=== PATIENT | male | born 1985 | race Caucasian/White ===

== ENCOUNTER 2023-09-15 02:42 | Emergency (ER) | payer OTHER ==
[~2023-09-15] VITALS: Ht 175.3 cm; Wt 110.0 kg
[2023-09-15 02:52] VITALS: BP 110/70; PULSE 88; RESP 18; TEMP 98
[2023-09-15 03:50] LABS: BASOPHILS % (AUTO) 0.5 % (0.0-2.0); EOSINOPHILS % (AUTO) 0.6 % (1.0-6.0); HEMATOCRIT 43.6 % (41-53); HEMOGLOBIN 14.6 g/dL (13.5-17.5); LYMPHOCYTES # (AUTO) 3.5 K/uL (1.0-4.8); LYMPHOCYTES % (AUTO) 43.9 % (22.0-44.0); MEAN CORPUSCULAR HEMOGLOBIN 30.1 pg (26.0-34.0); MEAN CORPUSCULAR HGB CONC 33.5 G/dL (31.0-37.0); MEAN CORPUSCULAR VOLUME 90 fL (80-100); MONOCYTES # (AUTO) 0.5 K/uL (0.1-1.0); MONOCYTES % (AUTO) 6.7 % (2.0-9.0); NEUTROPHILS # (AUTO) 3.8 K/uL (1.8-7.7); NEUTROPHILS % (AUTO) 48.3 % (40.0-70.0); PLATELET COUNT (AUTO) 246 K/uL (150-450); RED BLOOD CELL COUNT(AUTO) 4.85 MIL/uL (4.50-5.90); RED CELL DISTRIBUTION WIDTH 13.5 % (11.5-14.5); WHITE BLOOD COUNT (AUTO) 7.9 K/uL (4.5-11.0)
[2023-09-15 03:53] LABS: ANION GAP 9 mmol/L (8-16); CALCIUM, TOTAL 9.4 mg/dL (8.8-10.5); CARBON DIOXIDE 29 mmol/L (22-29); CHLORIDE 102 mmol/L (98-107); CREATININE 0.64 mg/dL (0.60-1.30); GLOMERULAR FILTR. RATE CALC > 60 mL/min (>60); GLUCOSE,RANDOM 103 mg/dL (70-110); SODIUM SERUM 140 mmol/L (136-145); UREA NITROGEN, BLOOD 12 mg/dL (7-18)
[2023-09-15 03:59] LABS: ALANINE AMINOTRANSFERASE 47 U/L (12-78); ALBUMIN 3.9 g/dL (3.4-5.0); ALKALINE PHOSPHATASE 70 U/L (46-116); ASPARTATE AMINOTRANSFERASE 35 U/L (15-37); BILIRUBIN,TOTAL 0.2 mg/dL (0.1-1.0); TOTAL PROTEIN, SERUM 7.1 g/dL (6.4-8.2)
[2023-09-15 04:08] LABS: ALCOHOL, BLOOD (SERUM) 216 mg/dL (0-10)
== END 2023-09-15 05:42 | disposition home or self-care (01) ==
LOC: EMS 02:43
DX: F10.229 Alcohol dependence with intoxication, unspecified (principal); F12.90 Cannabis use, unspecified, uncomplicated; F15.90 Other stimulant use, unspecified, uncomplicated; Y90.9 Presence of alcohol in blood, level not specified
CPT/HCPCS: 99283; 80053; 85025; 36415; G0480

== ENCOUNTER 2025-03-21 13:39 | Inpatient (IN) | payer MEDICAID, OTHER ==
[~2025-03-21] VITALS: Ht 172.7 cm; Wt 97.8 kg
[~2025-03-21 13:39] MED LIST: RISP-31 PO; SERT-158 PO; SERT-439 PO
[2025-03-21 14:14] LABS: COVID AG,FIA SOURCE NASAL SWAB
[2025-03-21 14:26] LABS: PLATELET COUNT (AUTO) 239 K/uL (150-450); RED BLOOD CELL COUNT(AUTO) 4.80 MIL/uL (4.50-5.90); RED CELL DISTRIBUTION WIDTH 14.3 % (11.5-14.5); WHITE BLOOD COUNT (AUTO) 8.3 K/uL (4.5-11.0)
[2025-03-21 14:32] LABS: SARS-COV2 (COVID) ANTIGEN,FIA Negative (Negative)
[2025-03-21 14:34] LABS: CALCIUM, TOTAL 8.6 mg/dL (8.8-10.5); CREATININE 0.84 mg/dL (0.60-1.30); GLOMERULAR FILTR. RATE CALC > 60 mL/min (>60); GLUCOSE,RANDOM 99 mg/dL (70-110); SODIUM SERUM 137 mmol/L (136-145); UREA NITROGEN, BLOOD 9 mg/dL (7-18)
[2025-03-21 14:57] LABS: APPEARANCE,URINE CLEAR (CLEAR); GLUCOSE, URINE (UA) NEGATIVE (NEGATIVE); LEUKOCYTE ESTERASE ,URINE NEGATIVE (NEGATIVE); NITRATE,URINE NEGATIVE (NEGATIVE); OCCULT BLOOD,URINE SMALL (NEGATIVE); PH,URINE DRUG SCREEN 6.5 (5.0-8.0); SPECIFIC GRAVITIY, URINE 1.020 (1.003-1.030)
[2025-03-21 15:02] LABS: ALCOHOL, URINE DRUG SCREEN POSITIVE (NEGATIVE); AMPHET/METH SCREEN,URINE NEGATIVE (NEGATIVE); BARBITURATE SCREEN, URINE NEGATIVE (NEGATIVE); CANNABINOID SCREEN,URINE NEGATIVE (NEGATIVE); COCAINE SCREEN,URINE NEGATIVE (NEGATIVE); METHADONE SCREEN, URINE NEGATIVE (NEGATIVE)
[2025-03-21 15:35] LABS: SQUAMOUS EPITHELIAL CELL,UR Few /LPF (None Seen)
[2025-03-21 21:07] VITALS: O2SAT 99
[2025-03-21 23:00] VITALS: BP 132/90; PULSE 96; RESP 18; TEMP 98.6; O2SAT 97
[2025-03-21 23:59] VITALS: BP 154/79; PULSE 92; RESP 16; TEMP 97.3; O2SAT 97
[2025-03-22] VITALS (11 sets, daily range): BP systolic 106–142; BP diastolic 76–98; PULSE 79–128; RESP 16–18; TEMP 97.3–98.4; O2SAT 95–100
[2025-03-22 08:56] LABS: CHOL/HDL RATIO 3.2 (4.2-7.3); LDL CHOL (CALC.) 154.0 mg/dL (0-130)
[2025-03-22] MEDS ORDERED: PETROLATUM,WHITE 28 GM JELLY TP PRN (10:00)
[2025-03-22] MEDS ORDERED: OMEPRAZOLE 20 MG CAPSULE PO PRN (10:00)
[2025-03-22] MEDS ORDERED: BACITRACIN 28 GM OINTMENT TP PRN (10:00)
[2025-03-22] MEDS ORDERED: MAGNESIUM HYDROXIDE SUSPENSION 30 ML UDCUP PO PRN (10:00)
[2025-03-22] MEDS ORDERED: DOCUSATE SODIUM 100 MG CAPSULE PO PRN (10:00)
[2025-03-22] MEDS ORDERED: ALBUTEROL SULFATE HFA 90 MCG/PUFF 8 GM INHALER IH PRN (10:00)
[2025-03-22] MEDS ORDERED: ONDANSETRON 4 MG TABLET PO PRN (10:00)
[2025-03-22] MEDS ORDERED: BENZOCAINE/MENTHOL [CEPACOL] LOZENGE PO PRN (10:00)
[2025-03-22] MEDS ORDERED: IBUPROFEN 600 MG TABLET PO PRN (10:00)
[2025-03-22] MEDS: ACETAMINOPHEN 325 MG TABLET PO PRN (20:23)
[2025-03-22] MEDS: ZOLPIDEM TARTRATE 10 MG TABLET PO PRN (20:24)
[2025-03-23] VITALS (7 sets, daily range): BP systolic 115–137; BP diastolic 76–107; PULSE 84–122; RESP 15–19; TEMP 97–97.8; O2SAT 97–99
[2025-03-24 00:06] LABS: HEPATITIS C AB (EIA) Non Reactive (Non Reactive)
[2025-03-24 08:27] VITALS: BP 118/79; PULSE 103; RESP 18; TEMP 98.4; O2SAT 97
[2025-03-24 20:15] VITALS: BP 126/83; PULSE 67; RESP 18; TEMP 98.2; O2SAT 97
[2025-03-25 08:40] VITALS: BP 134/82; PULSE 99; RESP 17; TEMP 98.5; O2SAT 98
[2025-03-25] MEDS: LOPERAMIDE HCL 2 MG CAPSULE PO PRN (12:27)
[2025-03-25 20:11] VITALS: BP 123/84; PULSE 89; RESP 19; TEMP 97.5; O2SAT 98
[2025-03-26] MEDS: SERTRALINE HCL 50 MG TABLET PO SCH (08:40)
[2025-03-26 08:42] VITALS: BP 157/97; PULSE 89; RESP 17; TEMP 98.4; O2SAT 100
[2025-03-26] MEDS: MAG HYDROX/ALUMINUM HYD/SIMETH ES 30 ML SUSPENSION UDCUP PO PRN (15:20)
[2025-03-26 20:40] VITALS: BP 129/82; PULSE 87; RESP 18; TEMP 97.8; O2SAT 99
[2025-03-27 08:54] VITALS: BP 131/85; PULSE 91; RESP 18; TEMP 98.1; O2SAT 99
[2025-03-27 10:00] LABS: C.DIFF GDH ANTIGEN, Stool Negative (Negative); C.DIFF TOXINS A&B, Stool Negative (Negative)
[2025-03-27 16:14] VITALS: BP 128/80; PULSE 68; RESP 18; TEMP 98.6; O2SAT 99
[2025-03-27 17:15] VITALS: RESP 18; O2SAT 98
[2025-03-27 20:39] VITALS: BP 133/71; PULSE 89; RESP 17; TEMP 97.6; O2SAT 98
[2025-03-28 08:20] VITALS: BP 120/79; PULSE 88; RESP 18; TEMP 97.7; O2SAT 98
[2025-03-28 14:02] VITALS: RESP 18
[2025-03-28 20:27] VITALS: BP 119/79; PULSE 98; RESP 18; TEMP 97.6; O2SAT 99
[2025-03-29 08:53] VITALS: BP 129/90; PULSE 71; RESP 16; TEMP 97.6; O2SAT 97
== END 2025-03-29 17:40 | disposition home or self-care (01) | DRG 753 ==
LOC: EMS 13:43 → B2S 21:40
PROVIDERS: ADMIT Psychiatry & Neurology Psychiatry; ATTEND Psychiatry & Neurology Psychiatry
DX: F31.9 Bipolar disorder, unspecified (principal); R45.851 Suicidal ideations; F25.9 Schizoaffective disorder, unspecified; F10.10 Alcohol abuse, uncomplicated; E78.5 Hyperlipidemia, unspecified; F15.10 Other stimulant abuse, uncomplicated; F41.9 Anxiety disorder, unspecified; G47.00 Insomnia, unspecified; I10 Essential (primary) hypertension; K59.00 Constipation, unspecified; Y90.5 Blood alcohol level of 100-119 mg/100 ml; Z20.822 Contact with and (suspected) exposure to COVID-19; Z79.899 Other long term (current) drug therapy
CPT/HCPCS: 80048; 80061; 80307; 81001; 83036; 85025; 86803; 87324; 87340; 87449; G0480